=== PATIENT | female | born 1965 | race African-American/Black ===

== ENCOUNTER 2022-09-28 23:09 | Emergency (ER) | payer MEDICAID, OTHER ==
[~2022-09-28] VITALS: Ht 157.5 cm; Wt 63.5 kg
--- NOTE | 2022-09-29 | NUR ---
CAME WITH CC OF FOREIGN OBJECT ON LEFT RING FINGER. NOT UP TO DATE TETANUS SHOT. PLACED COMFORTABLY IN CHAIR.
[2022-09-29 00:08] VITALS: BP 121/64
--- NOTE | 2022-09-29 00:09 | NUR ---
REMOVAL OF FOREIGN OBJECT DONE BY DR JEONG. DERMABOND APPLIED
[2022-09-29] MEDS ORDERED: TDAP [DIPH/PERTUSSIS/TET] 0.5 ML VIAL IM ONE ×2 (00:15)
[2022-09-29] MEDS ORDERED: CEPHALEXIN MONOHYDRATE 500 MG CAPSULE PO ONE ×2 (00:18)
[2022-09-29] MEDS ORDERED: CEPH500C2 PO (00:28)
--- NOTE | 2022-09-29 00:29 | NUR ---
Patient discharged to home in stable condition. Written and verbal after care instructions given. Patient verbalizes understanding of instruction.
== END 2022-09-29 00:30 | disposition home or self-care (01) ==
LOC: ER 23:12
DX: S60.455A Superficial foreign body of left ring finger, initial encounter (principal); W45.8XXA Other foreign body or object entering through skin, initial encounter; Y93.89 Activity, other specified; Y92.89 Other specified places as the place of occurrence of the external cause; Y99.8 Other external cause status
CPT/HCPCS: 90715